=== PATIENT | female | born 1950 | race Caucasian/White ===

== ENCOUNTER → 2018-04-20 | Outpatient (CLI) | payer MEDICARE, OTHER ==
[~2018-04-20] MED LIST: IOHEXOL 350 MG/ML 100 ML (OMNIPAQUE 350) VIAL IV ONE; NS 100 ML (IVPB) BAG IV ONE; RECEIVED CONTRAST (Hold Metformin) IV SCH
--- NOTE | 2018-04-20 14:18 | Diagnostic Imaging Report ---
PROCEDURE: CT neck soft tissue with contrast. TECHNIQUE: Multiple contiguous axial images were obtained through the neck after the administration of contrast. INDICATION: Hoarseness. Study is performed to evaluate for subglottic stenosis versus vocal cord mass. No prior studies are available for comparison. The visualized intracranial structures are unremarkable. Posterior nasopharynx and oropharynx are unremarkable. Parapharyngeal fat planes are preserved. Epiglottis is unremarkable. The larynx is unremarkable. Subglottic airway appears to be normal caliber. No stenosis is seen. There are no thyroid masses. There is a small left paratracheal node located at the level of the origins of the great vessels just anterior to the esophagus measuring 10 mm. Parotid and submandibular glands are unremarkable. No definite cervical lymphadenopathy or supraclavicular lymphadenopathy is seen. There are emphysematous changes in the upper lung sorto. IMPRESSION: Essentially unremarkable CT soft tissue neck study. Dictated by: Dictated on workstation # [id number]
== END ==
LOC: RAD 10:58
PROVIDERS: ATTEND Otolaryngology Otolaryngology/Facial Plastic Surgery
DX: J38.3 Other diseases of vocal cords (principal); R49.0 Dysphonia
CPT/HCPCS: 70491